=== PATIENT | male | born 1945 | race Caucasian/White ===

== ENCOUNTER → 2017-01-24 | Outpatient (REF) | payer MEDICARE, OTHER ==
[2017-01-25 12:31] LABS: CONTROL LINE HPYORI INT CTR LINE PRESENT
== END ==
LOC: M LAB REF 15:05
PROVIDERS: ATTEND Internal Medicine
DX: R10.13 Epigastric pain (principal)

== ENCOUNTER 2017-04-10 10:52 | Emergency (ER) | payer MEDICARE, OTHER ==
[~2017-04-10] VITALS: Ht 177.8 cm; Wt 84.1 kg
[2017-04-10] MEDS ORDERED: VALS1TAB47 (11:08)
[2017-04-10] MEDS ORDERED: ASPI81TA85 PO (11:08)
[2017-04-10] MEDS ORDERED: PANT40TA2 (11:08)
[2017-04-10] MEDS ORDERED: GLIM2TAB (11:08)
[2017-04-10] MEDS ORDERED: TRAD5TAB (11:08)
[2017-04-10] MEDS ORDERED: ONDANSETRON 4 MG ORAL DISINTEGRATING TAB (S0181) PO ONE (13:00)
[2017-04-10] MEDS ORDERED: KETOROLAC 60 MG/2 ML VIAL (J1885) IM ONE (13:00)
[2017-04-10] MEDS ORDERED: MORPHINE 4 MG/ML 1ML SYRINGE IV ONE (13:00)
[2017-04-10] MEDS ORDERED: MORPHINE 4 MG/ML 1ML SYRINGE IM ONE (13:30)
[2017-04-10] MEDS ORDERED: ROBA500T PO (13:35)
[2017-04-10] MEDS ORDERED: NORCOTAB PO (13:35)
[2017-04-10 13:40] VITALS: BP 176/96
== END 2017-04-10 13:55 | disposition home or self-care (01) ==
LOC: M ED 10:52
DX: M54.42 Lumbago with sciatica, left side (principal); I10 Essential (primary) hypertension; E11.9 Type 2 diabetes mellitus without complications; Z79.82 Long term (current) use of aspirin; Z79.899 Other long term (current) drug therapy
CPT/HCPCS: 96372; 99283; J1885

== ENCOUNTER 2019-01-27 13:31 | Emergency (ER) | payer MEDICARE, OTHER ==
[~2019-01-27] VITALS: Ht 177.8 cm; Wt 84.4 kg
[~2019-01-27 13:31] MED LIST: ASPI81TA85 PO; GLIM2TAB4; HYDR-3715 PO; PANT40TA3; ROBA500T PO; TRAD5TAB; VALS1TAB67
[2019-01-27] MEDS ORDERED: LOSA100T8 (13:39)
[2019-01-27] MEDS ORDERED: ONGL1TAB9 (13:39)
[2019-01-27] MEDS ORDERED: LIVA2TAB (13:39)
[2019-01-27] MEDS ORDERED: ACETAMINOPHEN 500 MG TAB PO ONE (14:00)
[2019-01-27] MEDS ORDERED: ADACEL/BOOSTRIX VACCINE (DIPHTH/PERTUSS/ACELL/TETANUS)0.5ML SYR (90715) IM ONE (14:00)
[2019-01-27] MEDS ORDERED: LIDOCAINE 2% MDV 20 ML VIAL SC ONE (14:00)
[2019-01-27] MEDS ORDERED: NAPR-885 PO (14:19)
--- NOTE | 2019-01-27 14:59 | REP ---
CT BRAIN WITHOUT IV CONTRAST: CT brain performed without IV contrast. There are no prior studies. There is mild atrophy. There is no midline shift or mass effect. Holly/white differentiation is well maintained. Tiny basal ganglia calcification is seen on the left. I see no evidence of acute intracranial hemorrhage or extra-axial fluid collection. Scalp hematoma is seen in the right frontoparietal region. There is no fracture identified. There is moderate diffuse mucosal thickening in the ethmoid and sphenoid sinuses. There are mild vascular calcifications in the carotid siphons. IMPRESSION: No evidence of acute intracranial hemorrhage or skull fracture. Moderate diffuse mucosal thickening in the ethmoid and sphenoid sinuses. Electronically Signed by Riley Holly MD 01/27/2019 06:10 P
[2019-01-27] MEDS ORDERED: AUGM875T28 PO (15:07)
[2019-01-27] MEDS ORDERED: AUGMENTIN 875 MG TAB PO ONE (15:15)
[2019-01-27 15:50] VITALS: BP 152/100
[2019-01-27] MEDS ORDERED: CETI10CA2 PO (16:22)
[2019-01-27] MEDS ORDERED: AFRI0.058 (16:22)
--- NOTE | 2019-01-28 07:34 | REP ---
CT MAXILLOFACIAL BONES: CT maxillofacial bone performed in the axial plane with sagittal plane with sagittal and coronal reconstruction images. There is a nondisplaced fracture of the right lamina papyracea. No other fracture is seen. There is air in the medial right orbit as well as the inferior right orbit, with air extending into the subcutaneous soft tissues in the right infraorbital region. Globes are intact. There is mild mucosal thickening in the frontoethmoidal recesses. There is moderate diffuse fluid and mucosal thickening in the ethmoid sinuses bilaterally. There is moderate mucosal thickening in the left sphenoid sinus. There is mild fluid and mucosal thickening in the right maxillary sinus. There is no orbital floor fracture. IMPRESSION: Nondisplaced fracture right lamina papyracea with resultant intraorbital air as well as air in the right infraorbital soft tissues. No other fracture is seen. Scattered mucosal thickening and fluid in the paranasal sinuses as discussed above. Incidental noted is made of a nodule in the deep right parotid gland approximately 2 cm in maximum diameter. A nodule is also seen in the anterior left parotid gland approximately 1.7 cm in diameter. Recommend followup ultrasound for further evaluation. Electronically Signed by Riley Holly MD 01/29/2019 09:46 A
--- NOTE | 2019-01-30 10:26 | ED PDOC ---
Post-Departure Follow-Up dr meyer faxed fomral report of ct max fac for fu rTista Zazueta MD Jan 30, 2019 10:26
== END 2019-01-27 16:32 | disposition home or self-care (01) ==
LOC: M ED 13:31
DX: S01.111A Laceration without foreign body of right eyelid and periocular area, initial encounter (principal); S02.31XA Fracture of orbital floor, right side, initial encounter for closed fracture; W22.8XXA Striking against or struck by other objects, initial encounter; Y92.018 Other place in single-family (private) house as the place of occurrence of the external cause; J01.90 Acute sinusitis, unspecified; I10 Essential (primary) hypertension; E11.9 Type 2 diabetes mellitus without complications; E78.9 Disorder of lipoprotein metabolism, unspecified; K21.9 Gastro-esophageal reflux disease without esophagitis; Z79.899 Other long term (current) drug therapy; Z79.84 Long term (current) use of oral hypoglycemic drugs; Z79.82 Long term (current) use of aspirin; F17.210 Nicotine dependence, cigarettes, uncomplicated

== ENCOUNTER → 2020-08-11 | Outpatient (CLI) | payer MEDICARE, OTHER ==
[~2020-08-11] MED LIST changes: +AFRI0.058; -ASPI81TA85 PO; +ASPI81TA86 PO; +AUGM875T28 PO; +CETI10CA2 PO; +FLON1SPR NARES; -GLIM2TAB4; +GLIM2TAB4 PO; +ISOVUE-300 61% 50ML VIAL As Ordered ONE; +LIDOCAINE 1% MDV 20ML VIAL As Ordered ONE; +LIVA2TAB PO; +LOSA100T8 PO; +METF500T13 PO; +MIDAZOLAM INJ 2MG/2ML VIAL (J2250 PER 1MG) As Ordered ONE; +NAPR-885 PO; +ONGL1TAB9; +PANT40TA29 PO; -PANT40TA3; +PLAV1TAB2 PO; -TRAD5TAB; +TRAD5TAB PO; +fentaNYL 100 MCG/2 ML INJECTION (J3010) As Ordered ONE
[2020-08-11 09:24] LABS: HEMATOCRIT 53.6 % (42.0-52.0); HEMOGLOBIN 17.3 g/dl (13.5-17.5); MEAN CORPUSCULAR HEMOGLOBIN 28.2 pg (27.0-33.0); MEAN CORPUSCULAR HGB CONC 32.3 g/dl (32.0-36.5); MEAN CORPUSCULAR VOLUME 87.3 fl (80.0-96.0); PLATELET COUNT, AUTOMATED 200 10^3/uL (150-450); RED BLOOD COUNT 6.14 10^6/uL (4.30-6.10); WHITE BLOOD COUNT 7.1 10^3/uL (4.0-10.0)
[2020-08-11 09:43] LABS: BLOOD UREA NITROGEN 15 MG/DL (7-18); CALCIUM LEVEL 9.2 MG/DL (8.8-10.2); CARBON DIOXIDE LEVEL 29 MEQ/L (21-32); CHLORIDE LEVEL 104 MEQ/L (98-107); CREATININE FOR GFR 1.15 MG/DL (0.70-1.30); GLOMERULAR FILTRATION RATE > 60.0 (>42); GLUCOSE, FASTING 235 MG/DL (70-100); POTASSIUM SERUM 5.1 MEQ/L (3.5-5.1); SODIUM LEVEL 136 MEQ/L (136-145)
--- NOTE | 2020-08-11 12:49 | ROOPDOC ---
[facility] Report Of Operation Report of Operation DATE OF PROCEDURE: 08/11/20 PREPROCEDURE DIAGNOSES: Atherosclerosis of the [place] arteries with lifestyle limiting claudication left lower extremity POSTPROCEDURE DIAGNOSES: Same PROCEDURE: 1. Ultrasound-guided access right common femoral artery 2. Aortoiliofemoral arteriogram 3. Selection left superficial femoral artery with left lower extremity runoff 4. Selection distal left posterior tibial artery with runoff 5. 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 Angioplasty left popliteal artery with 4 x 100 and 5 x 200 Arley balloons 7. Stent left popliteal artery proximal with 5 x 60 Innova stent and post-di lation with 5 x 200 Arley balloon 8. Angioplasty left tibioperoneal trunk and posterior tibial artery with 3 x 220 Herb balloon and 2 x 220 Herb balloon 9. Angioplasty left anterior tibial artery and dorsal pedis artery with 2 x 220 Herb balloon 10. Mynx closure right common femoral artery SURGEON: Louann Gil MD ANESTHESIA: Local anesthesia 4 mL lidocaine. Moderate intravenous conscious sedation was supervised by Dr. Gil. The patient was independently monitored by a registered nurse assigned to the Department of radiology using automated blood pressure, EKG, and pulse oximetry. The details sedation record is permanently stored in the hospital information system. The following is a brief sedation record: Start time 09:58, stop time 11:10, Versed 1.5 mg IV, fentanyl 50 g IV, heparin 4000 units IV. CONTRAST: 56 mL Isovue-300 INDICATION FOR PROCEDURE: This is a very pleasant 74-year-old gentleman with significant peripheral vascular disease combined with venous insufficiency. Bef ore addressing his venous issues, we would like to improve his arterial circulation to the lower extremity so he can tolerate adequate compression and elevation. His left lower extremity is more symptomatic than the right, so we discussed the risks benefits and alternatives to a left lower extremity arteriogram and possible intervention. The patient was thoroughly counseled and informed consent was obtained. 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 The patient is agreeable to this plan. INTERPRETATION: 1. The patient has diffuse calcification of the aortoiliac system. The distal aorta is patent with good runoff into the common iliac arteries bilaterally. 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 The distal common iliac artery is calcified patent with good flow into the hypogastric in the external iliac artery. Ectatic changes are noted throughout but no significant stenosis greater than 10-15% noted. The right common femoral artery is also widely patent, but distally has mild aneurysmal dilation near the bifurcation into the profunda in the SFA. 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 There is good flow through the hypogastric and the external iliac artery with ectasia but no stenoses greater than 20% noted. No flow limitations noted in either iliac system. 2. The left common femoral artery is calcified but patent and mildly aneurysmal towards the distal aspect at the bifurcation into the profunda and superficial f emoral artery. There is good flow through the calcified profunda and SFA, but the popliteal artery is very ectatic and narrows to a focal occlusion at the proximal mid aspect. Just proximal to this, there are several large genicular collaterals that supply flow to the leg. There is no reconstitution of the popliteal artery, and the origin of all 3 tibial vessels are not visualized. There is no reconstitution of the anterior tibial artery, but there is reconstitution of the posterior tibial artery and peroneal artery. Both are heavily calcified but patent. There is diffuse mild stenoses throughout the posterior tibial artery but this is the best runoff to the foot. Good runoff through the perineal to the ankle. 3. After angioplasty of the left popliteal artery with a 4 x 100 Arley balloon, I patent flow through the tibials with stenotic areas of the tibioperoneal trunk with runoff to the posterior tibial artery and peroneal artery. Minimal runoff noted at the origin of the anterior tibial artery, but no distal flow. Collaterals noted throughout the calf from the large genicular vessels. 4. After angioplasty of the left posterior tibial artery with a 3 x 220 Herb balloon, there was improve flow throughout the posterior tibial artery to the foot, but still some stenosis noted in the popliteal artery. No dissections, embolizations, extravasations, or AV fistulas noted. 5. After repeat angioplasty at the popliteal artery from the midportion into the distal SFA with a 5 x 200 Arley balloon, there was definitely improve flow, no extravasation embolization dissections or AV fistulas noted. 6. After crossing the chronic total occlusion and left anterior tibial artery and angioplasty along the length of the vessel from the proximal dorsal pedis artery to the proximal anterior tibial artery with 2 x 220 Herb balloons, there was some improvement in flow, but still limited runoff through the dorsal pedis due to microvascular disease at the foot. There was good flow into the collaterals from the proximal and mid anterior tibial artery. No dissection embolizations R extravasation noted. 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 This should help maintain patency in the proximal aspect of the vessel, and some flow still goes distal to this. 7. Repeat angioplasty of the left posterior tibial artery due to spasm noted on subsequent arteriograms revealed widely patent flow with ectasia and calcification, but no flow limitation. No extravasation embolization AV fistula or dissection noted. 8. During repeat arteriograms, ongoing stenosis noted in the proximal and mid popliteal artery, and after stenting with a 5 x 60 and Novastat and postdilated with a 5 x 200 Arley balloon, there is widely patent flow through the distal SFA and popliteal artery with no residual stenosis noted, no extravasation embolization dissection or AV fistula noted. There was good runoff into the tibials. REPORT OF OPERATION: The patient was brought to the angiographic suite in stable condition. His bilateral groins were prepped and draped in a sterile fashion. A timeout was performed. Sedation was administered without complication. Local anesthesia was a automobile designer to the skin and subcutaneous tissue over the right common femoral artery. A microneedle was used to access the artery and wire was passed through this access and a 4 [place] sheath was placed and flushed with saline. A Glidewire and flushing catheter were advanced into the distal aorta. Aortoiliofemoral arteriograms were performed, please see interpretation above. We then went up and over the bifurcation with a Glidewire and catheter and selected the left common femoral and superficial femoral artery and runoff was performed of the left lower extremity, please see interpretation above. We then exchange the sheath over the Glidewire for a 5 x 45 cm destination sheath and flushed the sheath with saline. Since the aneurysm and right common iliac artery is calcified, partially peripherally occluded with mural thrombus, with good luminal flow and no flow limitations, we did not place a covered stent over the common iliac artery to treat the aneurysm at this time. 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 A [place] catheter was used with a Glidewire to cross through the occlusion of the popliteal artery. This took a bit of time due to heavy calcification, but eventually we were able to cross into the left posterior tibial artery. We then angioplasty along the popliteal artery with a 4 x 100 Arley balloon, please see interpretation above. Following this, we exchange the wire for a 018 Glidewire advantage and advanced this into the distal posterior tibial artery. A 3 x 220 Herb balloon was used to a ngioplasty across the distal popliteal artery tibioperoneal trunk and proximal and mid posterior tibial artery. Following this there was definitely an improvement in flow, but still some residual stenosis in the proximal popliteal artery. We then exchanged the balloon for a 5 x 200 Arley balloon and a three- minute inflation was performed across the distal SFA proximal popliteal artery. Following this there was a dramatic improvement in flow, with only mild residual stenosis noted at that time. We then advanced a Glidewire into the anterior tibial artery and with the help of a 2 x 220 Herb balloon, we were able to cross through the occlusion in the anterior tibial artery to the proximal dorsal pedis artery. We then angioplasty for three-minute inflations from the dorsal pedis artery proximally to the popliteal artery. 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 Importantly, there is nothing we can do to improve upon this with endovascular techniques, but the outflow was still much improved compared to the chronic total occlusion. We then noted some spasm in the posterior tibial artery and the wire and balloon were advanced in the posterior tibial artery and a three-minute inflation was performed following this, there was no significant residual stenosis and diminished spasm in the vessel. We also noted some worsening stenosis in the proximal mid popliteal artery despite repeated angioplasties, so the sheath was exchanged for a 6 x 45 cm destination sheath over the wire, flushed with saline, and then a 5 x 60 Innova stent was deployed from the mid popliteal artery to the proximal, and postdilated with a 5 x 200 Arley balloon into the distal SFA. Following this, there is no significant residual stenosis and widely patent flow. There was good flow in all 3 tibials. No extravasation embolization dissection or AV fistula were noted. We then exchange the sheath for short 6 [place] sheath over the wire and the Mynx closure device was deployed with good hemostasis. Pressure was held and sterile dressings were applied and the patient was taken to recovery in stable condition. He tolerated the procedure and the sedation well. ESTIMATED BLOOD LOSS: Approximately 7 mL. COMPLICATIONS: None. PLAN: It is okay to resume home diet and medications. It is okay to resume Plavix. We'll see the patient back in a week to check his groin access site and see how his perfusion is doing. It's possible that over time, and endovascular option is not to be the best solution long-term, and the patient may need a femoral artery replacement due to aneurysmal dilation, also possibly a femoral to posterior tibial distal bypass. However, at this point, we are hopeful and endovascular option will provide a long-term solution for him. We plan to follow the iliac and femoral aneurysms for staging and sizing with serial arterial duplex ultrasound. We appreciate the opportunity to participate in the care of this patient. LOUANN GIL MD Aug 11, 2020 12:49
[2020-08-11 15:05] VITALS: BP 123/67
== END ==
LOC: M IRPRO 08:29
PROVIDERS: ATTEND Surgery Vascular Surgery
DX: I70.212 Atherosclerosis of native arteries of extremities with intermittent claudication, left leg (principal); I70.92 Chronic total occlusion of artery of the extremities; I72.3 Aneurysm of iliac artery; I72.4 Aneurysm of artery of lower extremity; I10 Essential (primary) hypertension; E11.59 Type 2 diabetes mellitus with other circulatory complications; D45 Polycythemia vera; Z79.899 Other long term (current) drug therapy
CPT/HCPCS: 37226; 37228; 75710; 80048; 85027; 99152; 99153; C1725; C1729; C1760; C1769; C1876; C1887; C1894; J1644; J2250; J3010; Q9967

== ENCOUNTER → 2020-09-22 | Outpatient (CLI) | payer MEDICARE, OTHER ==
[~2020-09-22] MED LIST changes: -ISOVUE-300 61% 50ML VIAL As Ordered ONE; -LIDOCAINE 1% MDV 20ML VIAL As Ordered ONE; -MIDAZOLAM INJ 2MG/2ML VIAL (J2250 PER 1MG) As Ordered ONE; -fentaNYL 100 MCG/2 ML INJECTION (J3010) As Ordered ONE
--- NOTE | 2020-09-22 13:42 | REP ---
INDICATION: ATHEROSCLEROSIS COMPARISON: CT angiogram 06/02/2020. TECHNIQUE: Real time holly scale and Duplex Doppler evaluation of the bilateral lower extremity arterial vasculature using linear high frequency transducer. FINDINGS: Holly scale and duplex doppler images demonstrate GAL right 0.83 and left 0.91. There are diffuse biphasic and triphasic waveforms throughout the bilateral lower extremities except for monophasic waveforms in the left anterior tibial artery. There is moderate diffuse plaque bilaterally. There is a patent left popliteal artery stent. Stenosis is suspected of the proximal left anterior tibial artery. There is no evidence of significant stenosis of the right lower extremity arterial structures. There is no arterial occlusion bilaterally. Peak systolic velocities (cm/sec) Common femoral artery: Right 73; Left 65 Profunda femoris: Right 158; Left 98 SFA (proximal): Right 141; Left 76 SFA (mid): Right 93; Left 84 SFA (distal): Right 70; Left 75 Popliteal artery: Right 39; Left 56 CHARANJIT (prox.): Right 88; Left 200 Tibioperoneal trunk: Right 62; Left 191 RAPIER INSERTION LOOM FIXER (prox.): Right 55; Left 131 RAPIER INSERTION LOOM FIXER (distal): Right 29; Left 72 CHARANJIT (distal): Right 43; Left 17 IMPRESSION: Moderate diffuse plaque bilaterally. Patent left popliteal artery stent. Stenosis proximal left anterior tibial artery. No other evidence of stenosis or occlusion bilaterally. <Electronically signed by Riley Holly > 09/22/20 0892
== END ==
LOC: M RAD 11:33
PROVIDERS: ATTEND Physician Assistant
DX: I70.212 Atherosclerosis of native arteries of extremities with intermittent claudication, left leg (principal)

== ENCOUNTER → 2021-08-25 | Outpatient (CLI) | payer MEDICARE, OTHER | LOC: M RAD 12:33 | PROVIDERS: ATTEND Internal Medicine | DX: F17.210 Nicotine dependence, cigarettes, uncomplicated (principal) ==

== ENCOUNTER → 2021-08-30 | Outpatient (CLI) | payer MEDICARE, OTHER | LOC: M RAD 07:58 | PROVIDERS: ATTEND Internal Medicine | DX: K82.4 Cholesterolosis of gallbladder (principal); R10.11 Right upper quadrant pain; K76.0 Fatty (change of) liver, not elsewhere classified ==

== ENCOUNTER 2021-12-07 21:42 | Emergency (ER) | payer MEDICARE, OTHER ==
[~2021-12-07] VITALS: Ht 177.8 cm; Wt 80.9 kg
[~2021-12-07 21:42] MED LIST changes: -AFRI0.058; +OXYM15SP2
[2021-12-07 21:43] VITALS: BP 175/103
== END 2021-12-07 22:10 | disposition left against medical advice (07) ==
LOC: M ED 21:42
DX: Z53.21 Procedure and treatment not carried out due to patient leaving prior to being seen by health care provider (principal)

== ENCOUNTER → 2022-05-13 | Outpatient (REF) | payer MEDICARE, OTHER ==
[~2022-05-13] MED LIST changes: +CLOP75TA99 PO; -PLAV1TAB2 PO
== END ==
LOC: M LAB REF 16:17
PROVIDERS: ATTEND Internal Medicine
DX: Z13.89 Encounter for screening for other disorder (principal)

== ENCOUNTER → 2024-11-29 | Outpatient (CLI) | payer MEDICARE, OTHER | LOC: M RAD 11:47 | PROVIDERS: ATTEND Nurse Practitioner Family | DX: I65.23 Occlusion and stenosis of bilateral carotid arteries (principal) ==